=== PATIENT | male | born 1985 | race Two or more races ===

== ENCOUNTER 2020-09-21 15:43 | Emergency (ER) | payer SELFPAY ==
[~2020-09-21] VITALS: Ht 172.7 cm; Wt 75.0 kg
[2020-09-21 15:48] VITALS: BP 164/104; Ht 172.7 cm; Wt 75.0 kg
[2020-09-21] MEDS ORDERED: CEPHALEXIN500 M1 PO (18:36)
[2020-09-21] MEDS ORDERED: VOLTAREN75 MG PO (18:36)
== END 2020-09-21 19:06 | disposition home or self-care (01) ==
LOC: D.ER 15:43
DX: S61.211A Laceration without foreign body of left index finger without damage to nail, initial encounter (principal); S61.213A Laceration without foreign body of left middle finger without damage to nail, initial encounter; W45.8XXA Other foreign body or object entering through skin, initial encounter; Y93.9 Activity, unspecified; Y92.9 Unspecified place or not applicable

== ENCOUNTER 2020-09-30 08:45 | Emergency (ER) | payer SELFPAY ==
[2020-09-21 15:48] VITALS: Ht 172.7 cm; Wt 84.1 kg
[~2020-09-30] VITALS: Ht 172.7 cm; Wt 84.1 kg
[~2020-09-30 08:45] MED LIST: CEPHALEXIN500 M1 PO; VOLTAREN75 MG PO
[2020-09-30 08:54] VITALS: BP 142/92
== END 2020-09-30 09:13 | disposition home or self-care (01) ==
LOC: D.ER 08:45
DX: Z48.02 Encounter for removal of sutures (principal)